=== PATIENT | female | born 1965 | race Caucasian/White ===

== ENCOUNTER 2025-06-08 15:36 | Inpatient (IN) | payer OTHER ==
[2025-06-08 16:28] VITALS: BMI 40.8
[2025-06-08] MEDS ORDERED: Acetaminophen 325 MG TAB PO PRN (17:18)
[2025-06-08] MEDS: Ondansetron PF 4 MG/2 ML Vial IVP PRN (17:20)
[2025-06-08 20:42] LABS: Hematocrit 41.4 % (36.0-47.0); Hemoglobin 13.6 g/dL (12.0-16.0)
[2025-06-08] MEDS: Pantoprazole 40 MG VIAL IVP SCH (21:18)
[2025-06-08] MEDS: HYDROcodone/Acetaminophen 10/325 mg Tablet PO PRN (22:58)
[2025-06-08] MEDS: NIFEdipine XL 30 MG ER.TAB PO SCH (22:59)
[2025-06-08] MEDS: Gabapentin 300 MG CAP PO SCH (22:59)
[2025-06-08 23:26] LABS: Hematocrit 39.2 % (36.0-47.0); Hemoglobin 12.9 g/dL (12.0-16.0)
[2025-06-09] MEDS: Lisinopril 20 MG TAB PO SCH (06:54)
[2025-06-09] MEDS: Gabapentin 300 MG CAP PO SCH (09:01)
[2025-06-09] MEDS: Rosuvastatin 10 MG TAB PO SCH (09:01)
[2025-06-09] MEDS: BuPROPion XL 150 MG ER.TAB PO SCH (09:01)
[2025-06-09 09:02] LABS: #Basophils 0.04 10x3/uL (0.0-0.2); #Eosinophils Less than 0.03 10x3/uL (0.0-0.7); #Monocytes 0.73 10x3/uL (0.11-0.59); #Neutrophils 7.12 10x3/uL (1.40-6.50); %Basophils 0.4 % (0.0-1.0); %Eosinophils 0.1 % (0.0-10.0); %Lymphocytes 21.3 % (21.0-51.0); %Monocytes 7.2 % (0.0-10.0); %Neutrophils 70.7 % (42.0-75.0); Hematocrit 35.7 % (36.0-47.0); Hemoglobin 11.8 g/dL (12.0-16.0); Mean Corpuscular Hemoglobin 28.5 pg (27.0-31.0); Mean Corpuscular Volume 86.2 fL (78.0-98.0); Platelet Count 166 10x3/uL (130-400); Red Blood Cell (RBC) Count 4.14 mill/uL (4.20-5.40); White Blood Cell (WBC) Count 10.08 10x3/uL (4.8-10.8)
[2025-06-09 09:17] LABS: Anion Gap 12 mmol/L (10-20); BUN (Urea Nitrogen) 6 mg/dL (9.8-20.1); Calc. Creatinine Clearance 143 mL/min (70-130); Calcium 7.9 mg/dL (7.8-10.44); Carbon Dioxide 25 mmol/L (22-29); Chloride 110 mmol/L (98-107); Glucose 111 mg/dL (70-105); Potassium 3.6 mmol/L (3.5-5.1); Sodium 143 mmol/L (136-145)
[2025-06-09 09:58] LABS: CRP, High Sensitivity at Bryan 0.77 mg/dL (< or = 0.5); Magnesium 1.8 mg/dL (1.6-2.6)
[2025-06-09] MEDS: Fioricet 325/50/40 mg Tablet PO PRN (12:17)
[2025-06-09] MEDS: PHOS-NAK 1 PKT PACK PO SCH (17:23)
[2025-06-09] MEDS: Magnesium 2 GM/50 ML(in water) 2 GM in Premix 1 BAG IVPB SCH (18:21)
[2025-06-09] MEDS: NIFEdipine XL 30 MG ER.TAB PO SCH (20:38)
[2025-06-09] MEDS: Pantoprazole 40 MG VIAL IVP SCH (20:40)
[2025-06-09] MEDS ORDERED: NIFEdipine XL 30 MG ER.TAB PO SCH (21:00)
[2025-06-10 07:49] LABS: #Basophils 0.04 10x3/uL (0.0-0.2); #Eosinophils Less than 0.03 10x3/uL (0.0-0.7); #Monocytes 0.46 10x3/uL (0.11-0.59); #Neutrophils 3.83 10x3/uL (1.40-6.50); %Basophils 0.6 % (0.0-1.0); %Eosinophils 0.3 % (0.0-10.0); %Lymphocytes 35.2 % (21.0-51.0); %Monocytes 6.8 % (0.0-10.0); %Neutrophils 56.8 % (42.0-75.0); Hematocrit 34.9 % (36.0-47.0); Hemoglobin 11.3 g/dL (12.0-16.0); Mean Corpuscular Hemoglobin 28.5 pg (27.0-31.0); Mean Corpuscular Volume 88.1 fL (78.0-98.0); Platelet Count 152 10x3/uL (130-400); Red Blood Cell (RBC) Count 3.96 mill/uL (4.20-5.40); White Blood Cell (WBC) Count 6.74 10x3/uL (4.8-10.8)
[2025-06-10] MEDS ORDERED: Lisinopril 20 MG TAB PO SCH (09:00)
[2025-06-10] MEDS ORDERED: Lisinopril 10 MG TAB PO SCH (09:00)
[2025-06-10 11:19] LABS: #Basophils 0.03 10x3/uL (0.0-0.2); #Eosinophils Less than 0.03 10x3/uL (0.0-0.7); #Monocytes 0.49 10x3/uL (0.11-0.59); #Neutrophils 3.63 10x3/uL (1.40-6.50); %Basophils 0.5 % (0.0-1.0); %Eosinophils 0.2 % (0.0-10.0); %Lymphocytes 32.6 % (21.0-51.0); %Monocytes 7.9 % (0.0-10.0); %Neutrophils 58.5 % (42.0-75.0); Hematocrit 32.4 % (36.0-47.0); Hemoglobin 11.0 g/dL (12.0-16.0); Mean Corpuscular Hemoglobin 29.3 pg (27.0-31.0); Mean Corpuscular Volume 86.4 fL (78.0-98.0); Platelet Count 147 10x3/uL (130-400); Red Blood Cell (RBC) Count 3.75 mill/uL (4.20-5.40); White Blood Cell (WBC) Count 6.20 10x3/uL (4.8-10.8)
[2025-06-10 11:35] LABS: ALT (SGPT) 26 U/L (Less than 34); AST (SGOT) 21 U/L (11-34); Albumin 3.4 g/dL (3.1-4.5); Alkaline Phosphatase 59 U/L (40-110); Anion Gap 10 mmol/L (10-20); BUN (Urea Nitrogen) 5 mg/dL (9.8-20.1); Bilirubin, Total 0.3 mg/dL (0.3-1.2); Calc. Creatinine Clearance 172 mL/min (70-130); Calcium 7.9 mg/dL (7.8-10.44); Carbon Dioxide 27 mmol/L (22-29); Chloride 106 mmol/L (98-107); Globulin 1.9 g/dL (2.4-3.5); Glucose 111 mg/dL (70-105); Magnesium 2.4 mg/dL (1.6-2.6); Potassium 3.7 mmol/L (3.5-5.1); Sodium 139 mmol/L (136-145)
[2025-06-10] MEDS: metroNIDAZOLE 500 MG TAB PO SCH (15:42)
[2025-06-10] MEDS: Ondansetron PF 4 MG/2 ML Vial IVP PRN (18:12)
[2025-06-11 00:20] LABS: Campy jejuni + coli by PCR Negative (Negative); STEC Shiga Toxin 1+2 Negative (Negative); Salmonella spp. by PCR Negative (Negative); Shigella spp + EIEC by PCR Negative (Negative)
[2025-06-11] MEDS ORDERED: Lisinopril 10 MG TAB PO SCH (10:00)
[2025-06-11] MEDS: Lisinopril 20 MG TAB PO SCH (10:10)
[2025-06-11 10:59] VITALS: BP 123/83; TEMP 98
== END 2025-06-11 12:15 | disposition home or self-care (01) | DRG 392 ==
LOC: T4-B 16:19
PROVIDERS: ADMIT Internal Medicine; ATTEND Internal Medicine
DX: K52.9 Noninfective gastroenteritis and colitis, unspecified (principal); F33.9 Major depressive disorder, recurrent, unspecified; Z88.1 Allergy status to other antibiotic agents; I10 Essential (primary) hypertension; E78.5 Hyperlipidemia, unspecified; G89.29 Other chronic pain; M54.9 Dorsalgia, unspecified; F41.9 Anxiety disorder, unspecified; G43.909 Migraine, unspecified, not intractable, without status migrainosus; Z98.890 Other specified postprocedural states; E83.42 Hypomagnesemia; E87.6 Hypokalemia; E83.39 Other disorders of phosphorus metabolism; K59.09 Other constipation; D50.0 Iron deficiency anemia secondary to blood loss (chronic)
CPT/HCPCS: 36415; 80048; 80053; 83735; 84100; 85025; 86141; 87505; J0692; J2405; J2470; J2543; J3475; J7030